=== PATIENT | male | born 2000 | race Caucasian/White ===

== ENCOUNTER 2023-05-06 12:40 | Emergency (ER) | payer OTHER ==
[~2023-05-06] VITALS: Ht 167.6 cm; Wt 66.5 kg
[2023-05-06 13:17] LABS: Urine Bacteria NONE SEEN /hpf (None Seen); Urine Blood Negative /uL (Negative); Urine Clarity Clear (Clear); Urine Color Yellow (Yellow); Urine Protein, UAD TRACE (Negative); Urine Specific Gravity 1.007 (1.001-1.035); Urine WBC 7 /hpf (0 - 3); Urine pH 6.5 (5.0-8.0)
[2023-05-06 13:48] LABS: Basophils # (auto) 0 10 ^3/uL (0-0.2); Basophils % (auto) 0.2 % (0.0-2.0); Eosinophils # (auto) 0 10 ^3/uL (0-0.8); Eosinophils % (auto) 0.3 % (0.0-7.0); Hematocrit 42.2 % (41.0-53.0); Hemoglobin 14.9 g/dL (13.5-17.5); Lymphocytes # (auto) 0.8 10 ^3/uL (0.4-5.4); Lymphocytes % (auto) 6.1 % (10.0-50.0); Mean Corpuscular Hgb Conc. 35.2 g/dL (32.0-36.0); Mean Corpuscular Volume 82.4 fL (80.0-100.0); Monocytes # (auto) 0.3 10 ^3/uL (0-1.3); Monocytes % (auto) 2.6 % (0.0-12.0); Neutrophils # (auto) 11.5 10 ^3/uL (1.6-8.6); Neutrophils % (auto) 90.8 % (37.0-80.0); Red Blood Cells 5.13 10^6/uL (4.5-5.90); Red Cell Distribution Width 13.2 % (11.8-14.3); White Blood Cell 12.7 10^3/uL (4.4-10.8)
[2023-05-06 13:58] LABS: Albumin 3.3 g/dL (3.4-5.0); Calcium 9.1 mg/dL (8.5-10.1); Potassium 3.3 mmol/L (3.5-5.1)
[2023-05-06] MEDS ORDERED: LORazepam 2MG/ML-1ML VIAL IM ONE (14:00)
[2023-05-06 14:01] LABS: BUN/Creatinine Ratio 9.3 (10.0-20.0); Bilirubin, Total 1.4 mg/dL (0.2-1.0); Total Protein 7.5 g/dL (6.4-8.2)
[2023-05-06] MEDS ORDERED: ASPirin 325 MG TAB PO ONE (15:15)
[2023-05-06] MEDS: SODIUM CHLORIDE 0.9% 1,000 ML IV ONE ×2 (15:20→16:19)
[2023-05-06] MEDS ORDERED: SODIUM CHLORIDE 0.9% 1,000 ML IV ONE (17:00)
[2023-05-06 17:10] VITALS: BP 117/68; PULSE 91; TEMP 99.2
[2023-05-06] MEDS ORDERED: IOHEXOL 350 MG/ML 100ML IJ ONE (17:39)
[2023-05-06] MEDS ORDERED: predniSONE 20 MG TAB PO ONE (19:00)
[2023-05-06] MEDS ORDERED: IPRATROPIUM BROM 0.5 MG/2.5ML INH SOL NEB ONE (19:00)
[2023-05-06] MEDS ORDERED: ALBUTEROL SULF 2.5 MG/0.5ML(0.5%) NEB SOLN NEB ONE (19:00)
[2023-05-06] MEDS ORDERED: ALBUAER3 IN (19:09)
[2023-05-06] MEDS ORDERED: PRED20TA2 PO (19:09)
[2023-05-06] MEDS ORDERED: DOXY-267 PO (19:09)
[2023-05-06] MEDS ORDERED: MELO-335 PO (19:09)
[2023-05-06] MEDS ORDERED: DOXYCYCLINE 100 MG TAB/CAP PO ONE (19:15)
[2023-05-06 19:23] VITALS: RESP 16; O2SAT 98
== END 2023-05-06 20:00 | disposition home or self-care (01) ==
LOC: ER 12:40
DX: J18.9 Pneumonia, unspecified organism (principal); R06.02 Shortness of breath; R07.89 Other chest pain
CPT/HCPCS: 36415; 71045; 71275; 80053; 81001; 84484; 85025; 94640; 96360; 96372; 99285; J2060; J7030; J7512; J7644; Q9967